=== PATIENT | male | born 1945 | race Caucasian/White ===

== ENCOUNTER 2019-08-12 12:19 | Observation (INO) | payer MEDICARE, OTHER, SELFPAY ==
[2019-08-12 12:20] VITALS: BP 108/62; PULSE 62; RESP 17; TEMP 36.6; O2SAT 96; BMI 36.9
--- NOTE | 2019-08-12 12:23 | ED_ITS ---
Entered by Megan Flores, acting as scribe for HPI - Chest Pain General: Chief Complaint: Chest Pain Stated Complaint: CHEST PAIN Time Seen by Provider: 08/12/19 12:21 Source: patient Mode of arrival: ambulatory Limitations: no limitations History of Present Illness: HPI narrative: 74 yo Male presents to ED with complaint of chest pain and dizziness. Pt states that he was sitting in his recliner when his pain started. Pt states that his pain was sharp and wouldn't go away. Pt states that he then became nauseated. Pt states that he has a 75% blockage but hasn't had a stent placed yet. MD complaint: chest pain Onset (ago): hour(s) (Just prior to arrival) Timing of current episode: still present Prior episodes: No Onset: during rest Pain location: substernal Pain radiation: none Quality: sharp and shooting Relieving factors: nothing Exacerbating factors: nothing Associated symptoms: Deny abdominal pain, diaphoresis, dyspnea, fever(s), nausea, palpitations, syncope or vomiting Review of Systems General: Reports: other (negative unless marked) Const: Denies: fever, chills, body aches, fatigue, malaise or diaphoresis Eyes: Denies: change in vision or blurry vision ENMT: Denies: throat pain, painful swallowing, hoarseness, ear pain, ear discharge, Change in hearing or nasal discharge Card: Reports: chest pain; Denies: palpitations, irregular heart rhythm, syncope, pre-syncope, shortness of breath on exertion or shortness of breath when lying down Resp: Denies: shortness of breath, productive cough, non-productive cough, wheezing, coughing up blood or chest congestion GI: Denies: abdominal pain, nausea, vomiting, vomiting blood, coffee grounds in vomit, diarrhea, constipation, cramping, blood in stool or black tarry stool : Denies: flank pain, difficulty urinating, painful urination, urinary frequency, urinary urgency, decreased urine ouput, urinary incontinence or blood in urine Musc: Denies: neck pain, back pain, extremity pain, extremity swelling, joint pain, joint swelling, joint warmth or joint stiffness Skin/Breast: Denies: rash, skin tenderness or yellow skin Neuro: Denies: headache, numbness in extremities, weakness in extremities, changes in sensation, lack of coordination, difficulty walking, dizziness, vertigo or confusion Endo: Denies: excessive thirst, tired all the time, cold intolerance, excessive sweating, flushing or hot flashes [place]/Lymph: Denies: easy bruising, easy bleeding, petechiae or enlarged lymph nodes All/Imm: Denies: hives, throat swelling, tongue swelling, facial swelling or acute wheezing PFSH ED PFSH: Statuses (acute, chronic, etc) shown below reflect problem list status as previously entered and may not be historically accurate Social History Smoking and tobacco status: never smoked Physical Exam Const: COMMON NORMALS: no apparent distress, oriented x3, no limitations, healthy appearing and well nourished EXAM LIMITATIONS: no altered mental status GENERAL APPEARANCE: cooperative, well kempt and well developed ORIENTATION/CONSCIOUSNESS: Yes awake HENMT: COMMON NORMALS: normocephalic, head/scalp atraumatic, hearing grossly normal bilaterally, external ears normal, EAC's normal, external nose normal and moist oral mucous membranes HEAD & SCALP: normal to inspection, normocephalic and atraumatic FACE & SINUS: normal facial exam and face symmetric NOSE: external nose normal and nares normal EXTERNAL EAR: Yes external ears normal EXTERNAL AUDITORY CANAL: EAC's normal MOUTH: oral and palatal mucosa normal and tongue normal Eye: COMMON NORMALS: PERRL, EOMs intact bilaterally, conjunctivae normal and no scleral icterus GENERAL EYE: normal appearance of both eyes and normal light reflex CONJUNCTIVA: Yes conjunctivae normal SCLERA: sclerae normal CORNEA: Yes corneas normal PUPIL: Yes PERRL DIRECT OPHTHALMOSCOPY: Yes normal light reflex Neck/C-Spine: COMMON NORMALS: full ROM, no lymphadenopathy, supple, no meningeal signs and no JVD GENERAL: Yes normal visual inspection and Yes trachea midline CERVICAL SPINE: Yes cervical ROM normal Chest: COMMONS NORMALS: inspection of chest normal and palpation of chest normal Resp: COMMON NORMALS: normal respiratory effort, no retractions, no use of accessory muscles and clear to auscultation bilaterally EFFORT & INSPECTION: Yes able to speak in complete sentences AUSCULTATION: clear to auscultation bilaterally Cardio: COMMON NORMALS: no JVD, regular rate, regular rhythm, S1 normal heart sound, S2 normal heart sound, no gallops, no clicks, no murmurs and no rub JUGULAR VENOUS DISTENTION: no JVD RATE: regular rate RHYTHM: regular rhythm HEART SOUNDS: S1 normal and S2 normal GI: COMMON NORMALS: soft to palpation, non-tender, no hepatosplenomegaly and no masses INSPECTION: Yes normal to inspection PALPATION: Yes soft and Yes no hepatosplenomegaly : COMMON NORMALS: Yes no CVA tenderness BLADDER/KIDNEY EXAM: Yes no CVA tenderness Back/Pelvis: COMMON NORMALS: no CVA tenderness, thoracic and lumbar spine normal to inspection, no thoracic nor lumbar tenderness and thoraco-lumbar ROM normal Extremity: COMMON NORMALS: normal to inspection, full ROM, normal capillary refill, no joint enlargement, no clubbing, cyanosis or edema and no calf tenderness Neuro: COMMON NORMALS: oriented x3, CN's II-XII intact bilaterally, moves all extremities, no focal motor deficits and no sensory deficits noted MENINGEAL SIGNS: Yes no meningeal signs Psych: COMMON NORMALS: mental status grossly normal, thought process normal, cooperative, affect normal, speech normal and activity/motor behavior normal APPEARANCE: Yes well kempt SPEECH: Yes normal speech THOUGHT PROCESS: normal thought process Skin: COMMON NORMALS: no rashes or lesions noted, skin turgor normal, no jaundice, no petechiae and no mottling GENERAL SKIN EXAM: no rashes or lesions noted and turgor normal Course Vital Signs: Vital signs: Vital Signs Temperature 97.8 F 08/12/19 12:20 Pulse Rate 62 08/12/19 12:20 Respiratory Rate 17 08/12/19 12:20 Blood Pressure 108/62 08/12/19 12:20 Pulse Oximetry 96 08/12/19 12:20 MDM - Chest Pain MDM Narrative: Medical decision making narrative: The patient by his report had an abnormal heart cath 1 year ago in [place]. We have repeatedly sent for those old records but they have not been provided to us. I believe the safest course of action is to admit him for observation for rule out then continue to seek these records to determine if a heart cath or a stress test would be the next best course of action. The case was reviewed with Dr. Jaimes and he is in agreement. Lab Data: Attestation: I reviewed the patient's lab results. Labs: Lab Results 08/12/19 08/12/19 08/12/19 Range/Units 13:00 13:00 13:35 WBC Cancelled Corrected WBC Cancelled RBC Cancelled Hgb Cancelled Hct Cancelled MCV Cancelled MCH Cancelled MCHC Cancelled RDW Cancelled Plt Count Cancelled MPV Cancelled Gran % Cancelled Neut % (Auto) Cancelled Lymph % (Auto) Cancelled [place] % (Auto) Cancelled Eos % (Auto) Cancelled Baso % (Auto) Cancelled Neut # (Auto) Cancelled Lymph # (Auto) Cancelled [place] # (Auto) Cancelled Eos # (Auto) Cancelled Baso # (Auto) Cancelled Absolute Gran (aut o) Cancelled Nucleated RBC % (a uto) Cancelled Nucleated RBCs # Cancelled D-Dimer Cancelled Sodium 139 (136-145) mmol/L Potassium 4.5 (3.5-5.1) mmol/L Chloride 104 (98-107) mmol/L Carbon Dioxide 24 (22-29) mmol/L Anion Gap 15.5 (5-19) BUN 23 (8-23) mg/dL Creatinine 1.2 (0.7-1.2) mg/dL Glucose 185 H (74-106) mg/dL Calcium 9.2 (8.8-10.2) mg/Dl Total Bilirubin 0.7 (0.15-1.2) mg/dL AST 17 (0-40) U/L ALT 14 (0-41) U/L Alkaline Phosphata se 67 (40-130) IU/L Troponin T Baselin e (0-15) ng/mL Troponin T 120 Min [place] (0-15) ng/mL Delta Troponin T (0-10) ABS# NT-Pro-B Natriuret Pep 29 (0-125) pg/mL Total Protein 5.5 L (6.6-8.7) g/dL Albumin 4.1 (3.5-5.2) g/dL Globulin 1.4 (1.3-4.6) g/dL 08/12/19 08/12/19 08/12/19 Range/Units 13:35 13:35 13:35 WBC 4.8 Corrected WBC RBC 4.35 Hgb 13.0 Hct 40.1 L MCV 92.2 MCH 29.9 MCHC 32.4 RDW 12.9 Plt Count 162 MPV 8.9 Gran % Neut % (Auto) 61.1 Lymph % (Auto) 26.7 [place] % (Auto) 9.3 Eos % (Auto) 2.3 Baso % (Auto) 0.4 Neut # (Auto) 2.9 Lymph # (Auto) 1.3 [place] # (Auto) 0.4 Eos # (Auto) 0.1 Baso # (Auto) 0.0 Absolute Gran (aut o) Nucleated RBC % (a uto) 0 Nucleated RBCs # 0.0 D-Dimer 0.39 Sodium (136-145) mmol/L Potassium (3.5-5.1) mmol/L Chloride (98-107) mmol/L Carbon Dioxide (22-29) mmol/L Anion Gap (5-19) BUN (8-23) mg/dL Creatinine (0.7-1.2) mg/dL Glucose (74-106) mg/dL Calcium (8.8-10.2) mg/Dl Total Bilirubin (0.15-1.2) mg/dL AST (0-40) U/L ALT (0-41) U/L Alkaline Phosphata se (40-130) IU/L Troponin T Baselin e 10 (0-15) ng/mL Troponin T 120 Min [place] (0-15) ng/mL Delta Troponin T (0-10) ABS# NT-Pro-B Natriuret Pep (0-125) pg/mL Total Protein (6.6-8.7) g/dL Albumin (3.5-5.2) g/dL Globulin (1.3-4.6) g/dL 08/12/19 Range/Units 15:05 WBC Corrected WBC RBC Hgb Hct MCV MCH MCHC RDW Plt Count MPV Gran % Neut % (Auto) Lymph % (Auto) [place] % (Auto) Eos % (Auto) Baso % (Auto) Neut # (Auto) Lymph # (Auto) [place] # (Auto) Eos # (Auto) Baso # (Auto) Absolute Gran (aut o) Nucleated RBC % (a uto) Nucleated RBCs # D-Dimer Sodium (136-145) mmol/L Potassium (3.5-5.1) mmol/L Chloride (98-107) mmol/L Carbon Dioxide (22-29) mmol/L Anion Gap (5-19) BUN (8-23) mg/dL Creatinine (0.7-1.2) mg/dL Glucose (74-106) mg/dL Calcium (8.8-10.2) mg/Dl Total Bilirubin (0.15-1.2) mg/dL AST (0-40) U/L ALT (0-41) U/L Alkaline Phosphata se (40-130) IU/L Troponin T Baselin e (0-15) ng/mL Troponin T 120 Min [place] 8.38 (0-15) ng/mL Delta Troponin T -1.62 L (0-10) ABS# NT-Pro-B Natriuret Pep (0-125) pg/mL Total Protein (6.6-8.7) g/dL Albumin (3.5-5.2) g/dL Globulin (1.3-4.6) g/dL Imaging Data^: CXR: Radiologist's impression: [address] [address] XRay Report Signed Patient: Gee Hartmna #: [id number] : 6At#:[id number] Age/Sex: 74 / MADM Date: 08/12/19 [facility] Att[facility] Dr: Ordering Provider/Ordering MD: Sun Conway DO Date of Service: 08/12/19 Procedure(s): XR chest 1V portable [id number] Accession Number(s): [id number] Report Number: [id number] PROCEDURE INFORMATION: Exam: XR Chest, 1 View Exam date and time: 08/12/2019 1:10 PM Age: 74 years old Clinical indication: Cough; Patient HX: Chest pain today, took nitro and became nauseated TECHNIQUE: Imaging protocol: XR of the chest Views: 1 view. COMPARISON: CR Chest 1 [place] [id number] 09/17/2012 9:54 PM FINDINGS: Lungs: Unremarkable. No consolidation. Pleural space: Unremarkable. No pleural effusion. No pneumothorax. Heart/Mediastinum: Unremarkable. No cardiomegaly. Bones/joints: Unremarkable. No interval changes are seen compared to prior XR/XR chest 1V portable [id number] IMPRESSION: No acute findings. Dictated By:Tad Martínez Signed By:Trino Martínez Date/Time:08/12/199 DD/ 38 Discharge Plan Discharge Patient Disposition: Placed in Observation Clinical Impression: Chest pain Condition: Stable Referrals: Primo Parks MD [Primary Care Provider] - Coding Level of Care Code ED Security Guard for Chg Fwd Exam Problem Focused The documentation recorded by the Mark bernstein Carmen, accurately reflects the service I personally performed and the decisions made by Zoraida yanes Eli N Aug 12, 2019 12:19
--- NOTE | 2019-08-12 12:51 | XRR_ITS ---
PROCEDURE INFORMATION: Exam: XR Chest, 1 View Exam date and time: 08/12/2019 1:10 PM Age: 74 years old Clinical indication: Cough; Patient HX: Chest pain today, took nitro and became nauseated TECHNIQUE: Imaging protocol: XR of the chest Views: 1 view. COMPARISON: CR Chest 1 [place] [id number] 09/17/2012 9:54 PM FINDINGS: Lungs: Unremarkable. No consolidation. Pleural space: Unremarkable. No pleural effusion. No pneumothorax. Heart/Mediastinum: Unremarkable. No cardiomegaly. Bones/joints: Unremarkable. No interval changes are seen compared to prior XR/XR chest 1V portable [id number] IMPRESSION: No acute findings.
--- NOTE | 2019-08-12 12:55 | ECG_ITS ---
Measurements Intervals [place] Rate: 60 P: 22 AK: 166 QRS: -35 QRSD: 88 T: 29 QT: 399 QTc: 401 SINUS RHYTHM MARKED LEFT AXIS DEVIATION [QRS AXIS < -30] MINIMAL ST DEPRESSION [0.025+ mV ST DEPRESSION] INTERPRETATION BASED ON A DEFAULT AGE OF 40 YEARS No previous ECG available for comparison Electronically Signed On 08-12-2019 20:12:31 WAFER FABRICATOR by Aliya Ribera M.D. [id number]
[2019-08-12] MEDS: sodium chloride 0.9% 1,000 ML 100 ML IV ×2 (13:16→20:42)
[2019-08-12 13:43] LABS: Basophils % 0.4 %; Eosinophils # 0.1 10^3/uL (0.0-0.8); Eosinophils % 2.3 %; Hematocrit 40.1 % (42.0-52.0); Lymphocytes # 1.3 10^3/uL (0.8-4.8); Lymphocytes % 26.7 %; Mean Corpuscular HGB Conc 32.4 g/dL (30.0-36.0); Mean Corpuscular Hemoglobin 29.9 pg (28.0-34.0); Mean Corpuscular Volume 92.2 fL (80-94); Mean Platelet Volume 8.9 fL (7.4-10.4); Monocytes # 0.4 10^3/uL (0.2-0.9); Monocytes % 9.3 %; Neutrophils # 2.9 10^3/uL (1.8-7.7); Neutrophils % 61.1 %; Nucleated Red Blood Cells % 0 %; Platelet Count 162 10^3/cmm (130-400); Red Blood Count 4.35 10^6/uL (4.1-5.3); Red Cell Distribution Width 12.9 % (12.1-15.1); White Blood Count 4.8 10^3/uL (4.0-10.0)
[2019-08-12 13:55] LABS: D Dimer 0.39 ug/mIFEU (0-0.59)
[2019-08-12 14:05] LABS: Troponin(5th) Baseline 10 ng/mL (0-15)
--- NOTE | 2019-08-12 14:55 | ECG_ITS ---
Measurements Intervals [place] Rate: 55 P: 6 HI: 168 QRS: -18 QRSD: 85 T: 31 QT: 413 QTc: 398 SINUS BRADYCARDIA No previous ECG available for comparison Electronically Signed On 08-12-2019 20:13:42 DOCTOR OF NATUROPATHIC MEDICINE by Aliya Ribera M.D. [id number]
[2019-08-12 15:18] LABS: Alanine Aminotransferase 14 U/L (0-41); Albumin Level 4.1 g/dL (3.5-5.2); Alkaline Phosphatase 67 IU/L (40-130); Anion Gap 15.5 (5-19); Aspartate Amino Transferase 17 U/L (0-40); Blood Urea Nitrogen 23 mg/dL (8-23); Calcium 9.2 mg/Dl (8.8-10.2); Carbon Dioxide 24 mmol/L (22-29); Chloride 104 mmol/L (98-107); Globulin 1.4 g/dL (1.3-4.6); Glucose 185 mg/dL (74-106); Potassium 4.5 mmol/L (3.5-5.1); Sodium 139 mmol/L (136-145); Total Bilirubin 0.7 mg/dL (0.15-1.2); Total Protein 5.5 g/dL (6.6-8.7)
[2019-08-12 15:31] LABS: Troponin 5 2HR 8.38 ng/mL (0-15)
[2019-08-12 15:34] LABS: Troponin 5 2HR Delta -1.62 ABS# (0-10)
[2019-08-12 15:51] LABS: NT Pro B Type Natriuretic Pept 29 pg/mL (0-125)
--- NOTE | 2019-08-12 17:49 | P.HP_ITS ---
Providers/Chief Complaint Primary Care Provider: Primo Parks MD Chief Complaint: CHEST PAIN History of Present Illness Neel Hartman is a 74 year old male with history of coronary disease, but not significant enough for stenting, hypertension, hyperlipidemia, chronic lower extremity edema presents to the emergency department due to complaint of chest pain, central, substernal, lower chest which started this morning while he was sitting up in chair, watching TV. He denies any specific trigger. Reports that pain was sharp initially, then turned into a dull, ache, which was severe, persistent. He reports he took a nitroglycerin which did take away the pain. Subsequently he was feeling dizzy, reported to have turned pale, with cold sweats. At that time he denies any palpitations, shortness of breath. He denies diabetes or history of hypoglycemia. Reports that he had a coronary angiogram probably about a year ago in [place] where he follows with Dr. Patel. Also reports that he possibly had a stress test in April as part of routine follow-up which he thinks may have been unremarkable but he is not sure. Records had been requested several times from ER, however, unsuccessfully. At this time he denies continuation of chest pain. In ER his first troponin is normal. EKG with nonspecific changes. Chest x-ray unremarkable. He reports that over the past week he has been suffering from a chest cold . Reports was diagnosed with bronchitis by his primary care provider for which was given a course of antibiotic. He reports he is still coughing, and it feels about similar. Review of Systems Const: Denies: fever, chills, body aches or malaise Eyes: Denies: change in vision or eye redness ENMT: Denies: throat pain, oral sores/lesions or ear pain Card: Reports: chest pain and pre-syncope (After taking nitro); Denies: edema or shortness of breath on exertion Resp: Denies: shortness of breath, productive cough, change in phlegm color or coughing up blood GI: Denies: abdominal pain, nausea, vomiting, diarrhea, constipation, blood in stool or black tarry stool : Denies: flank pain, difficulty urinating, urinary frequency or blood in urine Musc: Denies: back pain, joint swelling or redness Skin/Breast: Denies: rash, sores or new lesion Neuro: Denies: headache, numbness in extremities, weakness in extremities, dizziness, confusion or seizure-like activity Endo: Denies: excessive urination or excessive thirst [place]/Lymph: Denies: easy bleeding or purpura All/Imm: Denies: hives, throat swelling or tongue swelling Medications/Allergies Home Medications Medication Instructions Recorded Confirmed Last Taken Type amlodipine [Norvasc] 10 mg PO DAILY 08/12/19 08/12/19 08/12/19 History aspirin [Aspir-81] 81 mg PO DAILY 08/12/19 08/12/19 08/11/19 History calcium carbonate-vitamin D3 2 tab PO DAILY 08/12/19 08/12/19 Unknown History [Calcium 500 + D (D3)] codeine-guaifenesin [Virtussin AC] 10 ml PO Q4H PRN 08/12/19 08/12/19 08/12/19 History doxycycline hyclate 100 mg PO BID 08/12/19 08/12/19 08/12/19 History lisinopril 40 mg PO BID 08/12/19 08/12/19 08/12/19 History nitroglycerin [Nitrostat] 0.4 mg SUBLINGUAL Q5M PRN 08/12/19 08/12/19 08/12/19 History pravastatin 40 mg PO DAILY 08/12/19 08/12/19 08/11/19 History spironolactone 25 mg PO DAILY 08/12/19 08/12/19 Unknown History Allergies Allergy/AdvReac Type Severity Reaction Status Date / Time chlorthalidone Allergy Unknown ALGY-Hives Verified 08/12/19 14:45 PFSH Acute PFSH: Statuses (acute, chronic, etc) shown below reflect problem list status as previously entered and may not be historically accurate Medical History (Updated 08/12/19 @ 18:01 by Dominguez Casanova MD) Abnormal coronary angiogram (Acute) Chronic edema (Chronic) Coronary artery disease (Chronic) HLD (hyperlipidemia) (Chronic) HTN (hypertension) (Chronic) Retinal detachment (Acute) Surgical History History of cataract surgery (Acute) Family History Father Myocardial infarction Sister Myocardial infarction Sister Myocardial infarction Social History (Updated 08/12/19 @ 17:59 by Dominguez Casanova MD) Smoking and tobacco status: never smoked Alcohol intake: never Substance/Drug Use: never Marital status: Current occupational status: retired Vitals/I&O/Wt Last Vital Signs Temp 97.8 F 08/12/19 12:20 Pulse 62 08/12/19 12:20 Resp 17 08/12/19 12:20 BP 108/62 08/12/19 12:20 Pulse Ox 96 08/12/19 12:20 Weight last 48 hrs Weight 120.202 kg Physical Exam Const: COMMON NORMALS: no apparent distress and oriented x3 HENMT: COMMON NORMALS: oropharynx normal Neck/C-Spine: COMMON NORMALS: no JVD Resp: COMMON NORMALS: normal respiratory effort AUSCULTATION: wheezes Cardio: COMMON NORMALS: no JVD, regular rhythm, S1 normal heart sound, S2 normal heart sound and no murmurs RHYTHM: regular rhythm HEART SOUNDS: S1 normal and S2 normal GI: COMMON NORMALS: normal to inspection, nondistended, normoactive bowel sounds, soft to palpation and non-tender PALPATION: Yes soft Extremity: COMMON NORMALS: no joint enlargement and no pedal edema Neuro: COMMON NORMALS: oriented x3 and moves all extremities Skin: COMMON NORMALS: no rashes or lesions noted GENERAL SKIN EXAM: no rashes or lesions noted Data : 08/12/19 13:35 08/12/19 13:35 A&P Assessment and plan (1) Chest pain: Episode of chest pain this morning. He is not sure exactly how long it lasted. However, it was rather severe. Progressing from sharp, then to dull ache. Central, substernal, lower chest. Denies any exacerbation with movement, any pleuritic component. He has been having bronchitis over the past several days for which she was started on doxycycline. He has known coronary artery disease, although reportedly has had 2 coronary germs, but not significant enough to stent. Says that he may have had a stress test possibly in April. Does not exactly remember the result, but does not think it was abnormal. Denies having any chest pain at that time. His first troponin is normal. There is nonspecific T wave changes on EKG. He is currently chest pain-free. We will continue his aspirin, statin, he does not appear to be on beta-david, possibly secondary to bradycardia. His heart rate is 62. Complete troponin EKG series. Rule out acute TN. Plan for repeat stress test in the morning. 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 Monitor on telemetry. He is instructed to notify nursing staff in case of recurrence of episode of pain or lightheadedness. He denies history of arrhythmia. Denies history of diabetes or hypoglycemia. His lightheadedness, cold sweats thought related to medication as they started after he took nitro glycerin. He will let nursing staff know in case has a similar episode so additional work-up can be done at that time. Status: Acute Code(s): R07.9 - Chest pain, unspecified (2) Coronary artery disease: Reported coronary disease, not significant enough for stenting. Request medical records. Status: Chronic Code(s): I25.10 - Atherosclerotic heart disease of [place] coronary artery without angina pectoris (3) Bronchitis: Continue doxycycline. We will add breathing treatments. He is wheezing on exam. Denies history of COPD, although denies ever having a PFT. After acute episode discussed with him may benefit from assessment by pulmonary function testing. Status: Acute Code(s): J40 - Bronchitis, not specified as acute or chronic (4) HTN (hypertension): Monitor blood pressures. Cardiac diet. Continue home medications. Status: Chronic Code(s): I10 - Essential (primary) hypertension (5) HLD (hyperlipidemia): Continue statin. Status: Chronic Code(s): E78.5 - Hyperlipidemia, unspecified (6) Chronic edema: Continue spironolactone. Status: Chronic Code(s): R60.9 - Edema, unspecified Attestations Medical Necessity Statement*: Place in observation. Coding Level of Care Code Acute Decal Applier for [facility] Fwd Diagnoses Chest pain R07.9 Coronary artery disease I25.10 Bronchitis J40 HTN (hypertension) I10 HLD (hyperlipidemia) E78.5 Chronic edema R60.9
[2019-08-12 18:51] VITALS: RESP 17; TEMP 36.6; O2SAT 96
[2019-08-12 19:08] VITALS: BP 148/84; PULSE 60; RESP 20; TEMP 36.3; O2SAT 97
[2019-08-12 20:00] VITALS: BP 136/77; PULSE 56; RESP 16; TEMP 37; O2SAT 95
[2019-08-12 20:20] LABS: Troponin 5 6HR 9.63 ng/L (0-15)
[2019-08-12] MEDS: atorvastatin 40 mg Tablet 20 MG PO (20:40)
[2019-08-12 20:54] LABS: Troponin 5 6HR Delta -0.37 ng/L (0-12)
[2019-08-13] VITALS: BP 139/22; PULSE 57; RESP 16; TEMP 36.8; O2SAT 96
[2019-08-13 04:00] VITALS: BP 143/77; PULSE 57; RESP 18; TEMP 36.8; O2SAT 93
[2019-08-13 04:28] LABS: Blood Urea Nitrogen 17 mg/dL (8-23); Calcium 9.6 mg/Dl (8.8-10.2); Carbon Dioxide 26 mmol/L (22-29); Chloride 105 mmol/L (98-107); Glucose 102 mg/dL (74-106); Sodium 140 mmol/L (136-145)
[2019-08-13 04:34] LABS: Basophils % 0.4 %; Eosinophils # 0.2 10^3/uL (0.0-0.8); Eosinophils % 3.7 %; Hematocrit 41.3 % (42.0-52.0); Hemoglobin 13.7 g/dL (11.7-16.6); Lymphocytes # 1.8 10^3/uL (0.8-4.8); Lymphocytes % 35.5 %; Mean Corpuscular HGB Conc 33.2 g/dL (30.0-36.0); Mean Corpuscular Hemoglobin 30.2 pg (28.0-34.0); Mean Corpuscular Volume 91.2 fL (80-94); Mean Platelet Volume 9.3 fL (7.4-10.4); Monocytes # 0.5 10^3/uL (0.2-0.9); Monocytes % 9.5 %; Neutrophils # 2.6 10^3/uL (1.8-7.7); Neutrophils % 50.7 %; Nucleated Red Blood Cells % 0 %; Platelet Count 171 10^3/cmm (130-400); Red Blood Count 4.53 10^6/uL (4.1-5.3); Red Cell Distribution Width 12.7 % (12.1-15.1); White Blood Count 5.2 10^3/uL (4.0-10.0)
[2019-08-13] MEDS: ipratropium-albuterol 3 mL Neb INHALATION ×2 (05:10→08:02)
[2019-08-13 05:15] VITALS: PULSE 56; RESP 14; O2SAT 96
[2019-08-13 06:00] VITALS: BMI 37.1
[2019-08-13 08:00] VITALS: BP 131/74; PULSE 59; TEMP 36.8; O2SAT 93
[2019-08-13 08:03] VITALS: PULSE 59; RESP 17; O2SAT 94
[2019-08-13 08:09] VITALS: PULSE 59
[2019-08-13] MEDS: sodium chloride 0.9% 1,000 ML 100 ML IV (08:34)
--- NOTE | 2019-08-13 11:17 | PM.DCS ---
Discharge Providers Date of Admission: 08/12/19 15:51 Date of Discharge: 08/13/19 Attending Provider at Admission: Dominguez Casanova Attending Provider at Discharge: Dominguez Casanova Primary Care Provider: Primo Parks MD Diagnoses at Discharge Discharge Diagnosis (1) Chest pain: Status: Acute (2) Coronary artery disease: Status: Chronic (3) Bronchitis: Status: Acute (4) HTN (hypertension): Status: Chronic (5) HLD (hyperlipidemia): Status: Chronic (6) Chronic edema: Status: Chronic Reason for Visit Reason for Visit: Reason For Visit: CHEST PAIN Hospital Course Hospital Course: 74-year-old gentleman with history of coronary disease with past coronary geography, but reports without any stenting, with procedures done in [place] where he also follows with 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 She denies other prior such episodes recently. He does state that he has been having bronchitis over the past week for which his primary care provider prescribed a course of doxycycline. His troponin series in the hospital where all normal, will without suggestion of acute ischemia on EKG. He is currently chest pain-free. Stress testing was ordered for him today, however, he declines to stay for the test currently preferring to arrange for additional test if necessary through his concrete paving supervisor. He states that his concrete paving supervisor is going to see him tomorrow morning at 1030. He declines arrangement for outpatient stress test by us currently. He reports that he is still having cough. Denies significant shortness of breath. He will complete his doxycycline course at home. We will give him albuterol inhaler as needed for symptoms. Discussed with him in case of protracted symptoms, or recurrence of symptoms may benefit from pulmonary function testing which she will discuss with his primary care provider. Discharge Data Data Completed and Pending: Completed Studies During Hospitalization Category Date Time Status XR chest 1V bassam ble [id number] Stat Exams 08/12/19 12:51 Completed Pending at discharge Category Date Time Status Sestamibi Stress Test Request Routi ne Exams 08/12/19 19:08 Stop Req Sestamibi Stress Test Request Routi ne Exams 08/13/19 06:00 Ordered Basic Metabolic P kane AM LABS Lab 08/14/19 04:00 Ordered Basic Metabolic P kane AM LABS Lab 08/15/19 04:00 Ordered Complete Blood Co unt w/Auto AM LABS Lab 08/14/19 04:00 Ordered Complete Blood Co unt w/Auto AM LABS Lab 08/15/19 04:00 Ordered NM bill perf SPECT r&s* [id number] Routin e Nuc Med 08/13/19 19:08 Ordered Labs from last 24 hours 08/13/19 08/13/19 08/12/19 02:45 02:45 19:30 WBC 5.2 Corrected WBC RBC 4.53 Hgb 13.7 Hct 41.3 L MCV 91.2 MCH 30.2 MCHC 33.2 RDW 12.7 Plt Count 171 MPV 9.3 Gran % Neut % (Auto) 50.7 Lymph % (Auto) 35.5 Isabella % (Auto) 9.5 Eos % (Auto) 3.7 Baso % (Auto) 0.4 Neut # (Auto) 2.6 Lymph # (Auto) 1.8 Isabella # (Auto) 0.5 Eos # (Auto) 0.2 Baso # (Auto) 0.0 Absolute Gran (aut o) Nucleated RBC % (a uto) 0 Nucleated RBCs # 0.0 D-Dimer Sodium 140 Potassium 4.0 Chloride 105 Carbon Dioxide 26 Anion Gap 13.0 BUN 17 Creatinine 1.0 Glucose 102 Calcium 9.6 Total Bilirubin AST ALT Alkaline Phosphata se Troponin I 6 Hour 9.63 Troponin I Hi Sens Del -0.37 L Troponin T Baselin e Troponin T 120 Min [place] Troponin T NT-Pro-B Natriuret Pep Total Protein Albumin Globulin 08/12/19 08/12/19 08/12/19 15:05 13:35 13:35 WBC 4.8 Corrected WBC RBC 4.35 Hgb 13.0 Hct 40.1 L MCV 92.2 MCH 29.9 MCHC 32.4 RDW 12.9 Plt Count 162 MPV 8.9 Gran % Neut % (Auto) 61.1 Lymph % (Auto) 26.7 Isabella % (Auto) 9.3 Eos % (Auto) 2.3 Baso % (Auto) 0.4 Neut # (Auto) 2.9 Lymph # (Auto) 1.3 Isabella # (Auto) 0.4 Eos # (Auto) 0.1 Baso # (Auto) 0.0 Absolute Gran (aut o) Nucleated RBC % (a uto) 0 Nucleated RBCs # 0.0 D-Dimer 0.39 Sodium Potassium Chloride Carbon Dioxide Anion Gap BUN Creatinine Glucose Calcium Total Bilirubin AST ALT Alkaline Phosphata se Troponin I 6 Hour Troponin I Hi Sens Del Troponin T Baselin e Troponin T 120 Min [place] 8.38 Delta Troponin T -1.62 L NT-Pro-B Natriuret Pep Total Protein Albumin Globulin 08/12/19 08/12/19 08/12/19 13:35 13:35 13:00 WBC Corrected WBC RBC Hgb Hct MCV MCH MCHC RDW Plt Count MPV Gran % Neut % (Auto) Lymph % (Auto) Isabella % (Auto) Eos % (Auto) Baso % (Auto) Neut # (Auto) Lymph # (Auto) Isabella # (Auto) Eos # (Auto) Baso # (Auto) Absolute Gran (aut o) Nucleated RBC % (a uto) Nucleated RBCs # D-Dimer Cancelled Sodium 139 Potassium 4.5 Chloride 104 Carbon Dioxide 24 Anion Gap 15.5 BUN 23 Creatinine 1.2 Glucose 185 H Calcium 9.2 Total Bilirubin 0.7 AST 17 ALT 14 Alkaline Phosphata se 67 Troponin I 6 Hour Troponin I Hi Sens Del Troponin T Baselin e 10 Troponin T 120 Min [place] Troponin T NT-Pro-B Natriuret Pep 29 Total Protein 5.5 L Albumin 4.1 Globulin 1.4 08/12/19 13:00 WBC Cancelled Corrected WBC Cancelled RBC Cancelled Hgb Cancelled Hct Cancelled MCV Cancelled MCH Cancelled MCHC Cancelled RDW Cancelled Plt Count Cancelled MPV Cancelled Gran % Cancelled Neut % (Auto) Cancelled Lymph % (Auto) Cancelled Isabella % (Auto) Cancelled Eos % (Auto) Cancelled Baso % (Auto) Cancelled Neut # (Auto) Cancelled Lymph # (Auto) Cancelled Isabella # (Auto) Cancelled Eos # (Auto) Cancelled Baso # (Auto) Cancelled Absolute Gran (aut o) Cancelled Nucleated RBC % (a uto) Cancelled Nucleated RBCs # Cancelled D-Dimer Sodium Potassium Chloride Carbon Dioxide Anion Gap BUN Creatinine Glucose Calcium Total Bilirubin AST ALT Alkaline Phosphata se Troponin I 6 Hour Troponin I Hi Sens Del Troponin T Baselin e Troponin T 120 Min [place] Troponin T NT-Pro-B Natriuret Pep Total Protein Albumin Globulin Vitals: Last Vital Signs Temp 98.2 F 08/13/19 08:00 Pulse 59 L 08/13/19 08:09 Resp 17 08/13/19 08:03 BP 131/74 08/13/19 08:00 Pulse Ox 94 08/13/19 08:03 Discharge Plan Discharge Patient Disposition: Home, Self-Care Condition: Stable Prescriptions: New albuterol sulfate 90 mcg/actuation HFA aerosol inhaler 1 inh INHALATION QID PRN (Reason: wheezing) Qty: 6.7 RF: 0 Continued pravastatin 40 mg tablet 40 mg PO DAILY RF: 0 Aspir-81 81 mg Tablet,Delayed Release (Dr/Ec) 81 mg PO DAILY RF: 0 spironolactone 25 mg Tablet 25 mg PO DAILY RF: 0 Norvasc 10 mg Tablet 10 mg PO DAILY RF: 0 Nitrostat 0.4 mg Tablet, Sublingual 0.4 mg SUBLINGUAL Q5M PRN (Reason: Chest Pain) RF: 0 Virtussin AC 10-100 mg/5 mL liquid 10 ml PO Q4H PRN (Reason: Cough) RF: 0 lisinopril 40 mg Tablet 40 mg PO BID RF: 0 doxycycline hyclate 100 mg tablet 100 mg PO BID RF: 0 Calcium 500 + D (D3) 500 mg(1,250mg) -125 unit Tablet 2 tab PO DAILY RF: 0 Discharge Orders: Discharge Order (Routine); Ordered 08/13/19 Ordered By: Dominguez Casanova Referrals: Primo Parks MD [Primary Care Provider] - [employer], 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
--- NOTE | 2019-08-13 11:58 | PC.CHAP ---
Pastoral Care Encounter/Spiritual Assessment Type of Contact [] Declined sumatra opener visit [] Patient/Family/Request visit [] Outpatient visit [] Follow-up visit [] Physician referral [] Code/Alert [x] Routine visit [] Staff referral [] Actively dying [] Patient sleeping [] Family support [] [] Out of room [] Palliative care [] [] Receiving care in room [] Pre-surgical visit [] Trauma [] Long length of stay [] ICU visit [] Other: Relational/Emotional Strength [x] Patient feels connected with others/family/visitors/staff [] Distress [] Loneliness/isolation [] Abandonment Spirituality of Patient [x] Person of Yesi [] Attends Tenriism of their Yesi [x] Believes in Prayer [] Reads Bible or Religion materials [] There are Spiritual issues to be addressed [employer]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 Interventions [x] Prayer [x] Active listening [x] Non-anxious presence [x] Spiritual/emotional support [] Crisis/trauma care [] Spiritual counseling [] Bereavement support [] Provided bereavement packet [] Provided Bible/devotional materials [] Provided toy/stuffed animal, coloring book to patient or family member [x] Completed spiritual assessment [] Provided Communion [] Anointing/[place] [] Salvation [] Other: Impact on Illness or Injury [] Angry [] Fearful [x] Anxious [] Often cries [] Exhaustion [] Unable to work [] Unable to attend oriental orthodox [] Unable to walk/stand [] Unable to read [] Unable to drive [] Unable to eat/drink [] Unable to sleep [] Unable to be with family [] Other: Summary Henrietta seen patient and family members, patient was tired of waiting to get test and was without food for a while. Time spent with patient Spent 10 minutes X
--- NOTE | 2019-08-13 12:15 | PC.NURSE ---
Patient and family request for a private room as soon as we entered the patient room in -2. the nurse Luda told me to wait on vitals because they were upset about a joint room.
== END 2019-08-13 12:18 | disposition home or self-care (01) ==
LOC: ER 16:14 → MEDSURG 18:04
PROVIDERS: Admitting Provider Internal Medicine; Emergency Provider Emergency Medicine; PCP Family Medicine; Visit Provider Internal Medicine
DX: R07.9 Chest pain, unspecified (principal); I25.10 Atherosclerotic heart disease of native coronary artery without angina pectoris; J40 Bronchitis, not specified as acute or chronic; I10 Essential (primary) hypertension; E78.5 Hyperlipidemia, unspecified; R60.9 Edema, unspecified; Z79.82 Long term (current) use of aspirin; Z82.49 Family history of ischemic heart disease and other diseases of the circulatory system
CPT/HCPCS: 12345; 36415; 71045; 80048; 80053; 83880; 84484; 85025; 85378; 93005; 94640; 96360; 96361; 96374; 96375; 96376; 99281; 99285; G0378; J7030

== ENCOUNTER → 2022-08-08 11:47 | Outpatient (BNVA) | payer MEDICARE, BC, SELFPAY | PROVIDERS: PCP Family Medicine; Visit Provider Nurse Practitioner Family | DX: R05.9 Cough, unspecified (principal); Z20.822 Contact with and (suspected) exposure to COVID-19 | CPT/HCPCS: 87400; 87426 ==